=== PATIENT | female | born 1945 | race Caucasian/White ===

== ENCOUNTER 2020-01-14 09:33 | Inpatient (IN) ==
[2020-01-14] MEDS ORDERED: TUSSIONEX PENNKINETIC SUSP PO PRN (13:33)
[2020-01-14] MEDS ORDERED: LEVAQUIN PREMIX IV 750 MG 750 MG/150 ML BAG IV SCH (13:33)
[2020-01-14 14:03] VITALS: BMI 23.9
[2020-01-14 14:15] LABS: BASOPHILS % (AUTO) 0.2 % (0.2-1.0); EOSINOPHILS % (AUTO) 0.1 % (0.9-2.9); HEMATOCRIT 42.3 % (36.0-47.0); HEMOGLOBIN 14.3 g/dL (12.0-16.0); LYMPHOCYTES # (AUTO) 0.9 X10^3/uL (1.3-2.9); LYMPHOCYTES % (AUTO) 6.8 % (21.0-51.0); MEAN CORPUSCULAR HEMOGLOBIN 29.4 pg (27.0-34.0); MEAN CORPUSCULAR HGB CONC 33.7 g/dL (33.0-35.0); MEAN CORPUSCULAR VOLUME 87.1 fL (80.0-100.0); MEAN PLATELET VOLUME 8.4 fL (7.4-11.0); MONOCYTES % (AUTO) 7.5 % (0.0-13.0); NEUTROPHILS % (AUTO) 85.4 % (42.0-75.0); PLATELET COUNT 219 X10^3/uL (150.0-450.0); RED BLOOD COUNT 4.86 X10^6/uL (3.5-5.4); RED CELL DISTRIBUTION WIDTH 13.3 % (11.6-16.5); WHITE BLOOD COUNT 12.9 X10^3/uL (3.6-10.0)
[2020-01-14 14:37] LABS: ALANINE AMINOTRANSFERASE 42 Units/L (12-78); ALBUMIN 3.2 g/dL (3.4-5.0); ALKALINE PHOSPHATASE 79 Units/L (46-116); ASPARTATE AMINO TRANSFERASE 28 Units/L (15-37); BLOOD UREA NITROGEN 34 mg/dL (7-18); CALCIUM 9.6 mg/dL (8.5-10.1); CARBON DIOXIDE 24.7 mmol/L (21-32); CHLORIDE 100 mmol/L (98-107); COR CA(FOR HYPOALB) 10.2 mg/dL (8.5-10.1); CREATININE 1.66 mg/dL (0.55-1.02); LACTATE DEHYDROGENASE 239 Units/L (81-234); SODIUM 137 mmol/L (136-145); TOTAL PROTEIN 8.3 g/dL (6.4-8.2); eGFR NON BLACK RACES 32 (>60)
--- NOTE | 2020-01-14 14:46 | RAD ---
CHEST, 1 VIEWHISTORY: Cough and shortness of breath.Study: AP view of the chest.Comparison:NoneFindings:The cardiomediastinal silhouette is normal. No focal consolidations, pleural effusions or pneumothorax. There is some asymmetric opacity involving the left midlung. Bilateral hyperexpansion and interstitial prominence.IMPRESSION:1. Asymmetric left midlung opacity which may represent infection in the correct clinical setting.2. Findings of COPD.Electronically signed by: TAZ MEDEIROS (Jan 14, 2020 14:47:59)
[2020-01-14] MEDS ORDERED: KLOR-CON PO PRN (14:53)
[2020-01-14] MEDS ORDERED: POTASSIUM CHL 40 MEQ/NS 0.45% 500 ML IV PRN (14:53)
[2020-01-14] MEDS ORDERED: MAGNESIUM SULFATE 1 GRAM/100 mL PREMIX 1 GM/100 ML BAG IV PRN (14:53)
[2020-01-14] MEDS ORDERED: POTASSIUM CHLORIDE LIQ 20 MEQ UDC PO PRN (14:53)
[2020-01-14] MEDS ORDERED: MICRO K EXTEN CAP 10 MEQ PO PRN (14:53)
[2020-01-14] MEDS ORDERED: POTASSIUM CHL 60 MEQ/NS 0.45% 500 ML IV PRN (14:53)
[2020-01-14] MEDS ORDERED: K-RIDER 10 MEQ/NS 100 ML 10 MEQ/100 ML BAG IV PRN (14:53)
[2020-01-14] MEDS ORDERED: NS 1/2 1000 ML IV 1,000 ML IV ONE (14:57)
[2020-01-14] MEDS: NS 1/2 1000 ML IV 1,000 ML IV SCH (14:58)
[2020-01-14] MEDS: ROBITUSSIN DM PO SCH ×3 (14:58→20:55)
[2020-01-14] MEDS: FORTAZ or TAZICEF VIAL INJ 1 G in NS 100 ML IV + SPIKE MINIBAG* 100 ML IV SCH ×2 (14:58→14:59)
[2020-01-14] MEDS: VSL#3 PO SCH (15:03)
[2020-01-14] MEDS: K-DUR TAB 20 MEQ PO PRN (17:15)
[2020-01-14] MEDS ORDERED: ZOFRAN INJ 4 MG VIAL IVP PRN (17:32)
[2020-01-14] MEDS: TYLENOL 325 MG TAB PO PRN (18:20)
[2020-01-14] MEDS ORDERED: PULMICORT NEB TX 0.5 MG NEB SCH (21:00)
[2020-01-14] MEDS ORDERED: DUONEB 0.5 MG/3 MG (3 mL) NEB SCH (21:00)
[2020-01-14] MEDS ORDERED: VENTOLIN or PROAIR HFA IN SCH (21:00)
[2020-01-14 21:26] LABS: ABG BASE EXCESS -1.1 mmol/L (-2.0-2.0); ABG HCO3 20.7 mmol/L (22-26)
[2020-01-14 21:27] LABS: ABG ALLEN TEST POS
[2020-01-15] MEDS ORDERED: VENTOLIN or PROAIR HFA ONE (01:30)
[2020-01-15] MEDS ORDERED: NS 1/2 1000 ML IV 1,000 ML IV ONE ×3 (01:51→20:01)
[2020-01-15] MEDS: NS 1/2 1000 ML IV 1,000 ML IV SCH ×3 (01:56→20:40)
[2020-01-15 05:32] LABS: BASOPHILS % (AUTO) 0.1 % (0.2-1.0); EOSINOPHILS % (AUTO) 0.1 % (0.9-2.9); HEMATOCRIT 39.2 % (36.0-47.0); LYMPHOCYTES # (AUTO) 1.3 X10^3/uL (1.3-2.9); LYMPHOCYTES % (AUTO) 11.5 % (21.0-51.0); MEAN CORPUSCULAR HGB CONC 33.1 g/dL (33.0-35.0); MEAN CORPUSCULAR VOLUME 87.7 fL (80.0-100.0); MEAN PLATELET VOLUME 8.2 fL (7.4-11.0); MONOCYTES % (AUTO) 8.6 % (0.0-13.0); NEUTROPHILS # (AUTO) 9.2 x10^3/uL (2.2-4.8); NEUTROPHILS % (AUTO) 79.7 % (42.0-75.0); PLATELET COUNT 233 X10^3/uL (150.0-450.0); RED BLOOD COUNT 4.47 X10^6/uL (3.5-5.4); RED CELL DISTRIBUTION WIDTH 13.7 % (11.6-16.5); WHITE BLOOD COUNT 11.6 X10^3/uL (3.6-10.0)
[2020-01-15 05:35] LABS: ABG BASE EXCESS 0.9 mmol/L (-2.0-2.0); ABG HCO3 23.8 mmol/L (22-26)
[2020-01-15 05:36] LABS: ABG ALLEN TEST POS
[2020-01-15 05:57] LABS: ALBUMIN 2.7 g/dL (3.4-5.0); CALCIUM 8.9 mg/dL (8.5-10.1); CARBON DIOXIDE 27.2 mmol/L (21-32); COR CA(FOR HYPOALB) 9.9 mg/dL (8.5-10.1); CREATININE 1.32 mg/dL (0.55-1.02); TOTAL PROTEIN 7.3 g/dL (6.4-8.2)
[2020-01-15] MEDS: VENTOLIN or PROAIR HFA IN SCH ×3 (06:14→17:35)
[2020-01-15] MEDS: K-DUR TAB 20 MEQ PO PRN (06:39)
[2020-01-15] MEDS: LOVENOX INJ 30 MG SYR SC SCH (08:52)
[2020-01-15] MEDS: FORTAZ or TAZICEF VIAL INJ 1 G in NS 100 ML IV + SPIKE MINIBAG* 100 ML IV SCH (08:52)
[2020-01-15] MEDS: ROBITUSSIN DM PO SCH ×4 (08:52→20:40)
[2020-01-15] MEDS: VSL#3 PO SCH (08:53)
[2020-01-15] MEDS: TYLENOL 325 MG TAB PO PRN ×2 (09:05→20:50)
--- NOTE | 2020-01-15 09:57 | DR.H&P ---
H&P - History & Physical for Day of: H&P Date: 01/14/20 - Chief Complaint Chief Complaint: COUGH, NASAL CONGESTION, FEVER, CHILLS, NAUSEA/VOMITING, DECREASED APPETITE, AND FATIGUE - History of Present Illness History of Present Illness: IS A 74 YEAR OLD PATIENT OF [facility] IN [place], [place]. HE CONSULTED WITH US FOR DIRECT ADMISSION OF PATIENT. PATIENT PRESENTED WITH COMPLAINTS OF COUGH, NASAL CONGESTION, FEVER, CHILLS, NAUSEA/VOMITING, DECREASED APPETITE, AND FATIGUE. SYMPTOMS STARTED ABOUT A WEEK PRIOR AND HAVE PROGRESSIVELY GOTTEN WORSE. SHE WAS STARTED ON A MEDROL DOSEPACK, ALBUTEROL IHALER, AND AZITHROMYCIN ON 01/07/20. SYMPTOMS WERE NOT BETTER ON 01/11/20, SO SHE WAS THEN STARTED ON LEVAQUIN 500MG PO DAILY. SHE IS CURRENTLY TAKING THE LEVAQUIN. HER PMH INCLUDES: DIABETES MELLITUS TYPE 1, COPD, ARTHRITIS, HYSTERECTOMY, AND BLADDER TACK. ON ARRIVAL TO THE HOSPITAL, VITALS WERE 102.6-84-24-95%-129/59. LABS WERE OBTAINED. ABNORMAL LAB VALUES INCLUDE THE FOLLOWING: WBC 12.9, POTASSIUM 3.1, BUN 34, CREATININE 1.66, FERRITIN 668, LDH 239, CRP 143.20, TOTAL PROTEIN 8.3, ALBUMIN 3.2, GLOBULIN 5.1. COVID-19 POSITIVE. BLOOD AND SPUTUM CULTURES WERE SET UP. A CHEST XRAY WAS OBTAINED AND REVEALED: 1. Asymmetric left midlung opacity which may represent infection in the correct clinical setting.2. Findings of COPD. SHE WAS STARTED ON 1/2NS AT 75 ML/HR, LEVAQUIN 750MG IV Q48H, FORTAZ 1G IV DAILY, PROAIR INHALER Q6H, T USSIONEX 5ML PO Q12H PRN, LOVENOX 30MG SC DAILY, ROBITUSSIN DM 10 ML PO QID, ZOFRAN 4MG IV Q6H PRN, AND THE POTASSIUM AND MAGNESIUM PROTOCOLS. OTHERWISE, WE PLAN TO FOLLOW UP WITH AM LABS AND CHEST XRAY AND CONTINUE TO MONITOR. TIME SPENT WITH PATIENT ON EXAMINATION, REVIEWING LABS, AND PLAN OF CARE WAS BETWEEN 30-74 MINUTES. - Past Medical History Past Medical History: Arthritis, COPD, Diabetes - Past Surgical History Surgical History: Hysterectomy - Family History Family Medical History: Diabetes Mellitus, Cancer, PA - Social History Does patient currently use any type of tobacco product: No Have you used tobacco products in the last 12 months: No Type of Tobacco Use: None Alcohol Use: None Drug Use: None - Medications Home Medications: quinine [From Quinamm] Allergy (Verified 01/14/20 13:33) Sulfa (Sulfonamide Antibiotics) [SULFA] Allergy (Verified 01/14/20 13:33) - Review of Systems Constitutional: Fever, Chills, Weakness, Malaise, Other (DECREASED APPETITE ) Eyes: No Symptoms Reported ENT: No Symptoms Reported Respiratory: See HPI, Cough, Shortness of Breath, Wheezing Cardiovascular: No Symptoms Reported Gastrointestinal: No Symptoms Reported Genitourinary: No Symptoms Reported Musculoskeletal: No Symptoms Reported Skin: No Symptoms Reported Neurological: Weakness - Physical Exam Vital Signs: Temperature 98.5 F Pulse Rate [Apical] 75 Pulse Rate 98 Respiratory Rate 17 Blood Pressure [Left Arm] 126/60 O2 Sat by Pulse Oximetry 97 Oriented: Normal Eyes: Normal Ear: Normal Nose: Normal Throat: Normal Respiratory: Wheezes Throughout Cardiovascular: Normal. negative: S3, S4, Murmur : Normal Auscultation: Bowel Sounds: Normal Palpation: Normal Tenderness: Normal Skin: Normal Musculoskeletal: Normal Psychiatric: Normal Mood Description: Calm Affect: Normal Speech Pattern: Clear - Assessment/Plan (1) Bronchopneumonia Status: Acute Plan: ADMIT, 1/2NS AT 75 ML/HR, LEVAQUIN 750MG IV Q48H, FORTAZ 1G IV DAILY, PROAIR INHALER Q6H, TUSSIONEX 5ML PO Q12H PRN, LOVENOX 30MG SC DAILY, ROBITUSSIN DM 10 ML PO QID, ZOFRAN 4MG IV Q6H PRN, AND THE POTASSIUM AND MAGNESIUM PROTOCOLS (2) COVID-19 Status: Acute (3) Fever Qualifiers: Fever type: unspecified Qualified Code(s): R50.9 - Fever, unspecified Status: Acute (4) Dyspnea Qualifiers: Dyspnea type: shortness of breath Qualified Code(s): R06.02 - Shortness of breath; R06.00 - Dyspnea, unspecified; R06.01 - Orthopnea Status: Acute (5) Nausea and vomiting Qualifiers: Vomiting type: unspecified Vomiting Intractability: unspecified Qualified Code(s): R11.2 - Nausea with vomiting, unspecified Status: Acute - Allergies Allergies/Adverse Reactions: Allergies Allergy/AdvReac Type Severity Reaction Status Date / Time quinine [From Quinamm] Allergy Verified 01/14/20 13:33 Sulfa (Sulfonamide Allergy Verified 01/14/20 13:33 Antibiotics) [SULFA]
[2020-01-15] MEDS: TUSSIONEX PENNKINETIC SUSP PO SCH ×2 (11:18→23:10)
[2020-01-15] MEDS: TESSALON PERLES PO SCH ×2 (14:29→21:57)
[2020-01-16] MEDS: VENTOLIN or PROAIR HFA IN SCH ×4 (01:19→17:25)
[2020-01-16 05:23] LABS: BASOPHILS % (AUTO) 0.2 % (0.2-1.0); EOSINOPHILS % (AUTO) 0.3 % (0.9-2.9); HEMATOCRIT 32.9 % (36.0-47.0); HEMOGLOBIN 10.9 g/dL (12.0-16.0); LYMPHOCYTES # (AUTO) 1.6 X10^3/uL (1.3-2.9); LYMPHOCYTES % (AUTO) 13.3 % (21.0-51.0); MEAN CORPUSCULAR HEMOGLOBIN 29.5 pg (27.0-34.0); MEAN CORPUSCULAR HGB CONC 33.2 g/dL (33.0-35.0); MEAN CORPUSCULAR VOLUME 88.8 fL (80.0-100.0); MONOCYTES # (AUTO) 1.1 x10^3/uL (0.3-0.8); MONOCYTES % (AUTO) 9.1 % (0.0-13.0); NEUTROPHILS # (AUTO) 9.3 x10^3/uL (2.2-4.8); NEUTROPHILS % (AUTO) 77.1 % (42.0-75.0); PLATELET COUNT 199 X10^3/uL (150.0-450.0); RED CELL DISTRIBUTION WIDTH 13.7 % (11.6-16.5); WHITE BLOOD COUNT 12.1 X10^3/uL (3.6-10.0)
[2020-01-16 05:27] LABS: CALCIUM 8.2 mg/dL (8.5-10.1); CARBON DIOXIDE 24.4 mmol/L (21-32); COR CA(FOR HYPOALB) 9.8 mg/dL (8.5-10.1); CREATININE 1.19 mg/dL (0.55-1.02); TOTAL PROTEIN 5.9 g/dL (6.4-8.2)
[2020-01-16 05:38] LABS: ABG BASE EXCESS 1.4 mmol/L (-2.0-2.0); ABG HCO3 24.7 mmol/L (22-26)
[2020-01-16 05:40] LABS: ABG ALLEN TEST POSS
[2020-01-16] MEDS: TESSALON PERLES PO SCH ×3 (05:51→21:01)
--- NOTE | 2020-01-16 06:21 | RAD ---
HISTORYShortness of breathSTUDYChest AP [id number]/22/2020FINDINGSThe heart is mildly enlarged. No congestive heart failure is noted. The aorta is calcified. There has been interval development since the prior examination of some subsegmental atelectasis abutting the minor fissure in the right midlung. Left perihilar subsegmental atelectasis and infiltrate are now more prominent than on the prior examination. No pleural effusions are identified. The bony thorax is unremarkable.IMPRESSIONMild cardiomegaly without congestive heart failureMore prominent left perihilar infiltrate and subsegmental atelectasisRight midline subsegmental atelectasisElectronically signed by: FERNANDO JAMES (Jan 16, 2020 06:19:51)
[2020-01-16] MEDS: FORTAZ or TAZICEF VIAL INJ 1 G in NS 100 ML IV + SPIKE MINIBAG* 100 ML IV SCH (09:46)
[2020-01-16] MEDS: LEVAQUIN PREMIX IV 750 MG 750 MG/150 ML BAG IV SCH (09:46)
[2020-01-16] MEDS: VSL#3 PO SCH (09:47)
[2020-01-16] MEDS: LOVENOX INJ 30 MG SYR SC SCH (09:47)
[2020-01-16] MEDS: ROBITUSSIN DM PO SCH ×4 (09:47→20:57)
--- NOTE | 2020-01-16 10:22 | PCM.PROG ---
Progress Note - Progress Note for Day of Date of Exam: 01/15/20 - Subjective Subjective: IS BEING TREATED FOR COVID-19 AND BRONCHOPNEUMONIA. TODAY, SHE IS ALERT AND OREINTED, LYING IN BED ON MORNING ROUNDS. SHE CONTINUES WITH COMPLAINTS OF COUGH AND SHORTNESS OF BREATH TODAY. ON EXAMINATION, HEART IS REGUALR IN RATE AND RHYTHM. BILATERAL LUNGS ARE NOTED WITH SCATTERED WHEEZING THROUGHOUT. ABDOMEN IS ROUND, SOFT, AND NON-TENDER WITH NORMAL BOWEL SOUNDS NOTED IN ALL QUADRANTS. HER VITALS THIS MORNING ARE: 101.2-78-11-91%RA-101/55. LABS WERE OBTAINED. ABNORMAL LAB VALUES INCLUDE THE FOLLOWING: WBC 12.1, HGB 10.9, HCT 32.9, POTASSIUM 3.3, BUN 19, CREATININE 1.32, GLUCOSE 159, FERRITIN 762, CRP 119.10, ALBUMIN 2.7, GLOBULIN 4.6. ABG REVEALED: PH 7.480, PC02 32.0, P02 62.0, HC03 23.8, 02 SATS 93.0. BLOOD AND SPUTUM CULTURES ARE PENDING. SHE IS CURRENTLY RECEIVING 1/2NS AT 75 ML/HR, LEVAQUIN 750MG IV Q48H, FORTAZ 1G IV DAILY, PROAIR INHALER Q6H, TUSSIONEX 5ML PO Q12H PRN, LOVENOX 30MG SC DAILY, ROBITUSSIN DM 10 ML PO QID, ZOFRAN 4MG IV Q6H PRN, AND THE POTASSIUM AND MAGNESIUM PROTOCOLS. WE WILL CONTINUE WITH CURRENT PLAN OF CARE TODAY AND ADD TESSALON PERLES TID. OTHERWISE, WE WILL FOLLOW UP WITH AM LABS AND CONTINUE TO MONITOR. - Past Medical Family Social History Past Med/Fam/Surg Hx: No changes since H&P Allergies: Allergies quinine [From Quinamm] Allergy (Verified 01/14/20 13:33) Sulfa (Sulfonamide Antibiotics) [SULFA] Allergy (Verified 01/14/20 13:33) - Review of Systems ROS: No change since H&P - Vital Signs and I&O's Vital Signs: Temperature 98.8 F Pulse Rate [Apical] 63 Pulse Rate 70 Respiratory Rate 20 Blood Pressure [Left Arm] 125/54 O2 Sat by Pulse Oximetry 98 Intake and Output: Intake & Output 01/13/20 01/14/20 01/15/20 01/16/20 11:59 11:59 11:59 11:59 Intake Total 3080 / 3080 3840 / 3840 Output Total 600 / 600 Balance 3080 / 3080 3240 / 3240 - Physical Exam Oriented: Normal Eyes: Normal Ear: Normal Nose: Normal Throat: Normal Respiratory: Generalized, Wheezes Cardiovascular: Normal. negative: S3, S4, Murmur : Normal Auscultation: Bowel Sounds: Normal Palpation: Normal Tenderness: Normal Skin: Normal Musculoskeletal: Normal Psychiatric: Normal Mood Description: Calm Affect: Normal Speech Pattern: Clear, Appropriate - Laboratory and Diagnostics Result Diagrams: 01/16/20 04:15 01/16/20 04:15 Labs: 01/14/20 17:55 Sputum - Expectorated Sputum Sputum Culture - Final 01/14/20 17:55 Sputum - Expectorated Sputum - Final Laboratory WBC 12.1 X10^3/uL (3.6-10.0) H 01/16/20 04:15 RBC 3.70 X10^6/uL (3.5-5.4) 01/16/20 04:15 Hgb 10.9 g/dL (12.0-16.0) L D 01/16/20 04:15 Hct 32.9 % (36.0-47.0) L 01/16/20 04:15 MCV 88.8 fL (80.0-100.0) 01/16/20 04:15 MCH 29.5 pg (27.0-34.0) 01/16/20 04:15 MCHC 33.2 g/dL (33.0-35.0) 01/16/20 04:15 RDW 13.7 % (11.6-16.5) 01/16/20 04:15 Plt Count 199 X10^3/uL (150.0-450.0) 01/16/20 04:15 MPV 9.0 fL (7.4-11.0) 01/16/20 04:15 Neut % (Auto) 77.1 % (42.0-75.0) H 01/16/20 04:15 Lymph % (Auto) 13.3 % (21.0-51.0) L 01/16/20 04:15 [place] % (Auto) 9.1 % (0.0-13.0) 01/16/20 04:15 Eos % (Auto) 0.3 % (0.9-2.9) L 01/16/20 04:15 Baso % (Auto) 0.2 % (0.2-1.0) 01/16/20 04:15 Neut # (Auto) 9.3 x10^3/uL (2.2-4.8) H 01/16/20 04:15 Lymph # (Auto) 1.6 X10^3/uL (1.3-2.9) 01/16/20 04:15 [place] # (Auto) 1.1 x10^3/uL (0.3-0.8) H 01/16/20 04:15 Eos # (Auto) 0.0 x10^3/uL (0.0-0.2) 01/16/20 04:15 Baso # (Auto) 0.0 X10^3/uL (0.0-0.1) 01/16/20 04:15 Absolute Nucleated RBC 0.1 /100WBC 01/16/20 04:15 Sample Site R rad 01/16/20 05:00 ABG pH 7.470 (7.35-7.45) H 01/16/20 05:00 ABG pCO2 34.0 mmHg (35.0-45.0) L 01/16/20 05:00 ABG pO2 83.0 mmHg (80.0-100.0) 01/16/20 05:00 ABG HCO3 24.7 mmol/L (22-26) 01/16/20 05:00 ABG O2 Saturation 97.0 % (90-100) 01/16/20 05:00 ABG Base Excess 1.4 mmol/L (-2.0-2.0) 01/16/20 05:00 Jose Test Poss 01/16/20 05:00 A-a Gradient 74.0 mmHg 01/16/20 05:00 FiO2 28.0 01/16/20 05:00 Blood Gas Comments Amber well kb 01/16/20 05:00 Sodium 134 mmol/L (136-145) L 01/16/20 04:15 Corrected Sodium 136 mmol/L (136-145) 01/16/20 04:15 Potassium 3.9 mmol/L (3.5-5.1) 01/16/20 04:15 Chloride 101 mmol/L (98-107) 01/16/20 04:15 Carbon Dioxide 24.4 mmol/L (21-32) 01/16/20 04:15 BUN 10 mg/dL (7-18) 01/16/20 04:15 Creatinine 1.19 mg/dL (0.55-1.02) H 01/16/20 04:15 Est GFR (MDRD) Af Amer 57 (>60) L 01/16/20 04:15 Est GFR (MDRD) Non-Af 47 (>60) L 01/16/20 04:15 Glucose 170 mg/dL (65-99) H 01/16/20 04:15 Calcium 8.2 mg/dL (8.5-10.1) L 01/16/20 04:15 Corrected Calcium 9.8 mg/dL (8.5-10.1) 01/16/20 04:15 Magnesium 2.0 mg/dL (1.7-2.9) 01/14/20 13:55 Ferritin 832 ng/mL (8-252) H 01/16/20 04:15 Total Bilirubin 0.30 mg/dL (0.2-1.0) 01/16/20 04:15 AST 26 Units/L (15-37) 01/16/20 04:15 ALT 36 Units/L (12-78) 01/16/20 04:15 Alkaline Phosphatase 65 Units/L (46-116) 01/16/20 04:15 Lactate Dehydrogenase 239 Units/L (81-234) H 01/14/20 13:55 C-Reactive Protein 105.20 mg/L (0-3.0) H 01/16/20 04:15 Total Protein 5.9 g/dL (6.4-8.2) L 01/16/20 04:15 Albumin 2.0 g/dL (3.4-5.0) L 01/16/20 04:15 Globulin 3.9 g/dL (2.5-4.5) 01/16/20 04:15 Albumin/Globulin Ratio 0.5 Ratio (1.1-2.1) L 01/16/20 04:15 SARS-CoV-2 (PCR) Positive (NEGATIVE) A 01/14/20 10:42 - Plan (1) Bronchopneumonia Status: Acute Plan: 1/2NS AT 75 ML/HR, LEVAQUIN 750MG IV Q48H, FORTAZ 1G IV DAILY, PROAIR INHALER Q6H, TUSSIONEX 5ML PO Q12H, TESSALON PERLES TID, LOVENOX 30MG SC DAILY, ROBITUSSIN DM 10 ML PO QID, ZOFRAN 4MG IV Q6H PRN, AND THE POTASSIUM AND MAGNESIUM PROTOCOLS (2) COVID-19 Status: Acute (3) Fever Status: Acute Qualifiers: Fever type: unspecified Qualified Code(s): R50.9 - Fever, unspecified (4) Dyspnea Status: Acute Qualifiers: Dyspnea type: shortness of breath Qualified Code(s): R06.02 - Shortness of breath; R06.00 - Dyspnea, unspecified; R06.01 - Orthopnea (5) Nausea and vomiting Status: Acute Qualifiers: Vomiting type: unspecified Vomiting Intractability: unspecified Qualified Code(s): R11.2 - Nausea with vomiting, unspecified
[2020-01-16] MEDS ORDERED: NS 1/2 1000 ML IV 1,000 ML IV ONE ×2 (11:05→19:56)
[2020-01-16] MEDS: NS 1/2 1000 ML IV 1,000 ML IV SCH ×2 (11:46→20:59)
[2020-01-16] MEDS: TUSSIONEX PENNKINETIC SUSP PO SCH ×2 (11:46→23:35)
--- NOTE | 2020-01-16 22:17 | PCM.PROG ---
Progress Note - Progress Note for Day of Date of Exam: 01/16/20 - Subjective Subjective: IS BEING TREATED FOR COVID-19 AND BRONCHOPNEUMONIA. TODAY, SHE IS ALERT AND OREINTED, LYING IN BED ON MORNING ROUNDS. SHE CONTINUES WITH COMPLAINTS OF COUGH AND SHORTNESS OF BREATH TODAY. ON EXAMINATION, HEART IS REGUALR IN RATE AND RHYTHM. BILATERAL LUNGS ARE NOTED WITH SCATTERED WHEEZING THROUGHOUT. ABDOMEN IS ROUND, SOFT, AND NON-TENDER WITH NORMAL BOWEL SOUNDS NOTED IN ALL QUADRANTS. HER VITALS THIS MORNING ARE: 98.4-73-22-96%-133/63. LABS WERE OBTAINED. ABNORMAL LAB VALUES INCLUDE THE FOLLOWING: wbc 12.1, hgb 10.9, hct 32.9, sodium 134, creatinine 1.19, glucose 170, ferritin 832, crp 105.20, total protein 5.9, alblumin 2.0. ABG REVEALED: PH 7.470, pc02 34.0, p02 83.0, hc03 24.7, 02 saturation 97.0, base excess 1.4. BLOOD AND SPUTUM CULTURES ARE PENDING. A CHEST XRAY WAS OBTAINED AND REVEALED: Mild cardiomegaly without congestive heart failure. More prominent left perihilar infiltrate and subsegmental atelectasis. Right midline subsegmental atelectasis. SHE IS CU RRENTLY RECEIVING 1/2NS AT 75 ML/HR, LEVAQUIN 750MG IV Q48H, FORTAZ 1G IV DAILY, PROAIR INHALER Q6H, TUSSIONEX 5ML PO Q12H PRN, LOVENOX 30MG SC DAILY, ROBITUSSIN DM 10 ML PO QID, ZOFRAN 4MG IV Q6H PRN, AND THE POTASSIUM AND MAGNESIUM PROTOCOLS. WE WILL CONTINUE WITH CURRENT PLAN OF CARE TODAY. OTHERWISE, WE WILL FOLLOW UP WITH AM LABS AND CONTINUE TO MONITOR. - Past Medical Family Social History Past Med/Fam/Surg Hx: No changes since H&P Allergies: Allergies quinine [From Quinamm] Allergy (Verified 01/14/20 13:33) Sulfa (Sulfonamide Antibiotics) [SULFA] Allergy (Verified 01/14/20 13:33) - Review of Systems ROS: No change since H&P - Vital Signs and I&O's Vital Signs: Temperature 98.0 F Pulse Rate [Apical] 65 Pulse Rate 65 Respiratory Rate 18 Blood Pressure [Left Arm] 119/58 O2 Sat by Pulse Oximetry 98 Intake and Output: Intake & Output 01/14/20 01/15/20 01/16/20 01/17/20 11:59 11:59 11:59 11:59 Intake Total 3080 / 3080 3840 / 3840 1560 / 1560 Output Total 600 / 600 Balance 3080 / 3080 3240 / 3240 1560 / 1560 - Physical Exam Oriented: Normal Eyes: Normal Ear: Normal Nose: Normal Throat: Normal Respiratory: Generalized, Wheezes Cardiovascular: Normal. negative: S3, S4, Murmur : Normal Auscultation: Bowel Sounds: Normal Palpation: Normal Tenderness: Normal Skin: Normal Musculoskeletal: Normal Psychiatric: Normal Mood Description: Calm Affect: Normal Speech Pattern: Clear, Appropriate - Laboratory and Diagnostics Result Diagrams: 01/16/20 04:15 01/16/20 04:15 Labs: 01/14/20 13:55 Blood Blood Culture - Preliminary 01/14/20 13:55 Blood Blood Culture - Preliminary 01/14/20 17:55 Sputum - Expectorated Sputum Sputum Culture - Final 01/14/20 17:55 Sputum - Expectorated Sputum - Final Laboratory WBC 12.1 X10^3/uL (3.6-10.0) H 01/16/20 04:15 RBC 3.70 X10^6/uL (3.5-5.4) 01/16/20 04:15 Hgb 10.9 g/dL (12.0-16.0) L D 01/16/20 04:15 Hct 32.9 % (36.0-47.0) L 01/16/20 04:15 MCV 88.8 fL (80.0-100.0) 01/16/20 04:15 MCH 29.5 pg (27.0-34.0) 01/16/20 04:15 MCHC 33.2 g/dL (33.0-35.0) 01/16/20 04:15 RDW 13.7 % (11.6-16.5) 01/16/20 04:15 Plt Count 199 X10^3/uL (150.0-450.0) 01/16/20 04:15 MPV 9.0 fL (7.4-11.0) 01/16/20 04:15 Neut % (Auto) 77.1 % (42.0-75.0) H 01/16/20 04:15 Lymph % (Auto) 13.3 % (21.0-51.0) L 01/16/20 04:15 [place] % (Auto) 9.1 % (0.0-13.0) 01/16/20 04:15 Eos % (Auto) 0.3 % (0.9-2.9) L 01/16/20 04:15 Baso % (Auto) 0.2 % (0.2-1.0) 01/16/20 04:15 Neut # (Auto) 9.3 x10^3/uL (2.2-4.8) H 01/16/20 04:15 Lymph # (Auto) 1.6 X10^3/uL (1.3-2.9) 01/16/20 04:15 [place] # (Auto) 1.1 x10^3/uL (0.3-0.8) H 01/16/20 04:15 Eos # (Auto) 0.0 x10^3/uL (0.0-0.2) 01/16/20 04:15 Baso # (Auto) 0.0 X10^3/uL (0.0-0.1) 01/16/20 04:15 Absolute Nucleated RBC 0.1 /100WBC 01/16/20 04:15 Sample Site R rad 01/16/20 05:00 ABG pH 7.470 (7.35-7.45) H 01/16/20 05:00 ABG pCO2 34.0 mmHg (35.0-45.0) L 01/16/20 05:00 ABG pO2 83.0 mmHg (80.0-100.0) 01/16/20 05:00 ABG HCO3 24.7 mmol/L (22-26) 01/16/20 05:00 ABG O2 Saturation 97.0 % (90-100) 01/16/20 05:00 ABG Base Excess 1.4 mmol/L (-2.0-2.0) 01/16/20 05:00 Jose Test Poss 01/16/20 05:00 A-a Gradient 74.0 mmHg 01/16/20 05:00 FiO2 28.0 01/16/20 05:00 Blood Gas Comments Amber well kb 01/16/20 05:00 Sodium 134 mmol/L (136-145) L 01/16/20 04:15 Corrected Sodium 136 mmol/L (136-145) 01/16/20 04:15 Potassium 3.9 mmol/L (3.5-5.1) 01/16/20 04:15 Chloride 101 mmol/L (98-107) 01/16/20 04:15 Carbon Dioxide 24.4 mmol/L (21-32) 01/16/20 04:15 BUN 10 mg/dL (7-18) 01/16/20 04:15 Creatinine 1.19 mg/dL (0.55-1.02) H 01/16/20 04:15 Est GFR (MDRD) Af Amer 57 (>60) L 01/16/20 04:15 Est GFR (MDRD) Non-Af 47 (>60) L 01/16/20 04:15 Glucose 170 mg/dL (65-99) H 01/16/20 04:15 Calcium 8.2 mg/dL (8.5-10.1) L 01/16/20 04:15 Corrected Calcium 9.8 mg/dL (8.5-10.1) 01/16/20 04:15 Magnesium 2.0 mg/dL (1.7-2.9) 01/14/20 13:55 Ferritin 832 ng/mL (8-252) H 01/16/20 04:15 Total Bilirubin 0.30 mg/dL (0.2-1.0) 01/16/20 04:15 AST 26 Units/L (15-37) 01/16/20 04:15 ALT 36 Units/L (12-78) 01/16/20 04:15 Alkaline Phosphatase 65 Units/L (46-116) 01/16/20 04:15 Lactate Dehydrogenase 239 Units/L (81-234) H 01/14/20 13:55 C-Reactive Protein 105.20 mg/L (0-3.0) H 01/16/20 04:15 Total Protein 5.9 g/dL (6.4-8.2) L 01/16/20 04:15 Albumin 2.0 g/dL (3.4-5.0) L 01/16/20 04:15 Globulin 3.9 g/dL (2.5-4.5) 01/16/20 04:15 Albumin/Globulin Ratio 0.5 Ratio (1.1-2.1) L 01/16/20 04:15 SARS-CoV-2 (PCR) Positive (NEGATIVE) A 01/14/20 10:42 - Plan (1) Bronchopneumonia Status: Acute Plan: 1/2NS AT 75 ML/HR, LEVAQUIN 750MG IV Q48H, FORTAZ 1G IV DAILY, PROAIR INHALER Q6H, TUSSIONEX 5ML PO Q12H, TESSALON PERLES TID, LOVENOX 30MG SC DAILY, ROBITUSSIN DM 10 ML PO QID, ZOFRAN 4MG IV Q6H PRN, AND THE POTASSIUM AND MAGNESIUM PROTOCOLS (2) COVID-19 Status: Acute (3) Fever Status: Acute Qualifiers: Fever type: unspecified Qualified Code(s): R50.9 - Fever, unspecified (4) Dyspnea Status: Acute Qualifiers: Dyspnea type: shortness of breath Qualified Code(s): R06.02 - Shortness of breath; R06.00 - Dyspnea, unspecified; R06.01 - Orthopnea (5) Nausea and vomiting Status: Acute Qualifiers: Vomiting type: unspecified Vomiting Intractability: unspecified Qualified Code(s): R11.2 - Nausea with vomiting, unspecified
[2020-01-17] MEDS: VENTOLIN or PROAIR HFA IN SCH ×4 (00:55→16:20)
[2020-01-17 05:17] LABS: BASOPHILS % (AUTO) 0.1 % (0.2-1.0); EOSINOPHILS # (AUTO) 0.2 x10^3/uL (0.0-0.2); EOSINOPHILS % (AUTO) 1.4 % (0.9-2.9); HEMATOCRIT 30.3 % (36.0-47.0); HEMOGLOBIN 10.3 g/dL (12.0-16.0); LYMPHOCYTES # (AUTO) 1.6 X10^3/uL (1.3-2.9); LYMPHOCYTES % (AUTO) 12.8 % (21.0-51.0); MEAN CORPUSCULAR HEMOGLOBIN 29.7 pg (27.0-34.0); MEAN CORPUSCULAR HGB CONC 34.1 g/dL (33.0-35.0); MEAN CORPUSCULAR VOLUME 87.1 fL (80.0-100.0); MEAN PLATELET VOLUME 8.3 fL (7.4-11.0); MONOCYTES # (AUTO) 1.3 x10^3/uL (0.3-0.8); MONOCYTES % (AUTO) 10.4 % (0.0-13.0); NEUTROPHILS # (AUTO) 9.2 x10^3/uL (2.2-4.8); NEUTROPHILS % (AUTO) 75.3 % (42.0-75.0); PLATELET COUNT 201 X10^3/uL (150.0-450.0); RED BLOOD COUNT 3.48 X10^6/uL (3.5-5.4); RED CELL DISTRIBUTION WIDTH 13.5 % (11.6-16.5); WHITE BLOOD COUNT 12.2 X10^3/uL (3.6-10.0)
[2020-01-17 05:33] LABS: ALANINE AMINOTRANSFERASE 50 Units/L (12-78); ALBUMIN 1.9 g/dL (3.4-5.0); ALKALINE PHOSPHATASE 62 Units/L (46-116); ASPARTATE AMINO TRANSFERASE 36 Units/L (15-37); BLOOD UREA NITROGEN 8 mg/dL (7-18); CALCIUM 8.5 mg/dL (8.5-10.1); CARBON DIOXIDE 28.2 mmol/L (21-32); CHLORIDE 98 mmol/L (98-107); COR CA(FOR HYPOALB) 10.2 mg/dL (8.5-10.1); COR NA(FOR HYPERGLY) 133 mmol/L (136-145); CREATININE 0.87 mg/dL (0.55-1.02); SODIUM 132 mmol/L (136-145); TOTAL PROTEIN 5.8 g/dL (6.4-8.2); eGFR NON BLACK RACES > 60 (>60)
[2020-01-17] MEDS: TESSALON PERLES PO SCH ×3 (05:55→21:19)
--- NOTE | 2020-01-17 08:06 | RAD ---
HISTORYShortness of breathSTUDYChest AP [id number]/24/2020FINDINGSThe heart is upper limits normal in size. No definite congestive heart failure is noted. The lungs are less well inflated than on the prior examination. Increasing perihilar atelectasis right upper and right lower lobe when compared with the prior examination. Left perihilar infiltrate is unchanged. A small left pleural effusion may be present. Bony thorax is unremarkable.IMPRESSIONHypo inflationWorsening perihilar subsegmental atelectasis on the rightNo change left perihilar infiltrateElectronically signed by: FERNANDO JAMES (Jan 17, 2020 08:05:01)
[2020-01-17] MEDS: LOVENOX INJ 30 MG SYR SC SCH (09:33)
[2020-01-17] MEDS: ROBITUSSIN DM PO SCH ×4 (09:33→20:44)
[2020-01-17] MEDS: VSL#3 PO SCH (09:34)
[2020-01-17] MEDS: FORTAZ or TAZICEF VIAL INJ 1 G in NS 100 ML IV + SPIKE MINIBAG* 100 ML IV SCH (09:46)
[2020-01-17] MEDS: NS 1/2 1000 ML IV 1,000 ML IV SCH ×2 (12:57→13:38)
[2020-01-17] MEDS: TUSSIONEX PENNKINETIC SUSP PO SCH ×2 (12:57→23:31)
[2020-01-17] MEDS ORDERED: NS 1/2 1000 ML IV 1,000 ML IV ONE (13:23)
--- NOTE | 2020-01-17 22:21 | PCM.PROG ---
Progress Note - Progress Note for Day of Date of Exam: 01/17/20 - Subjective Subjective: IS BEING TREATED FOR COVID-19 AND BRONCHOPNEUMONIA. TODAY, SHE IS ALERT AND OREINTED, LYING IN BED ON MORNING ROUNDS. SHE CONTINUES WITH COMPLAINTS OF COUGH AND SHORTNESS OF BREATH, BUT REPORTS SLIGTH IMPROVEMENT IN SYMPTOMS TODAY. ON EXAMINATION, HEART IS REGUALR IN RATE AND RHYTHM. BILATERAL LUNGS ARE NOTED WITH SCATTERED WHEEZING THROUGHOUT. ABDOMEN IS ROUND, SOFT, AND NON-TENDER WITH NORMAL BOWEL SOUNDS NOTED IN ALL QUADRANTS. HER VITALS THIS MORNING ARE: 98.9-70-26-97%-110/54. LABS WERE OBTAINED. ABNORMAL LAB VALUES INCLUDE THE FOLLOWING: WBC 12.2, RBC 3.48, HGB 10.3, HCT 30.3, SODIUM 132, GLUCOSE 122, FERRITIN 775, CRP 77.60, TOTAL PROTEIN 5.8. ALBUMIN 1.9. BLOOD AND SPUTUM CULTURES ARE PENDING. A CHEST XRAY WAS OBTAINED AND REVEALED: Hypo inflation. Worsening perihilar subsegmental atelectasis on the right. No change left perihilar infiltrate. SHE IS CURRENTLY RECEIVING 1/2NS AT 75 ML/HR, LEVAQUIN 750MG IV Q48H, FORTAZ 1G IV DAILY, PROAIR INHALER Q6H, TUSSIONEX 5ML PO Q12H PRN, LOVENOX 30MG SC DAILY, ROBITUSSIN DM 10 ML PO QID, ZOFRAN 4MG IV Q6H PRN, AND THE POTASSIUM AND MAGNESIUM PROTOCOLS. WE WILL CONTINUE WITH CURRENT PLAN OF CARE TODAY. OTHERWISE, WE WILL FOLLOW UP WITH AM LABS AND CONTINUE TO MONITOR. - Past Medical Family Social History Past Med/Fam/Surg Hx: No changes since H&P Allergies: Allergies quinine [From Quinamm] Allergy (Verified 01/14/20 13:33) Sulfa (Sulfonamide Antibiotics) [SULFA] Allergy (Verified 01/14/20 13:33) - Review of Systems ROS: No change since H&P - Vital Signs and I&O's Vital Signs: Temperature 98.6 F Pulse Rate [Apical] 73 Pulse Rate 68 Respiratory Rate 21 Blood Pressure [Left Arm] 127/58 O2 Sat by Pulse Oximetry 95 Intake and Output: Intake & Output 01/15/20 01/16/20 01/17/20 01/18/20 11:59 11:59 11:59 11:59 Intake Total 3080 / 3080 3840 / 3840 2885 / 2885 1196 / 1196 Output Total 600 / 600 Balance 3080 / 3080 3240 / 3240 2885 / 2885 1196 / 1196 - Physical Exam Oriented: Normal Eyes: Normal Ear: Normal Nose: Normal Throat: Normal Respiratory: Generalized, Wheezes Cardiovascular: Normal. negative: S3, S4, Murmur : Normal Auscultation: Bowel Sounds: Normal Tenderness: Normal Skin: Normal Musculoskeletal: Normal Psychiatric: Normal Mood Description: Calm Affect: Normal Speech Pattern: Clear - Laboratory and Diagnostics Result Diagrams: 01/17/20 04:22 01/17/20 04:22 Labs: 01/14/20 13:55 Blood Blood Culture - Preliminary 01/14/20 13:55 Blood Blood Culture - Preliminary 01/14/20 17:55 Sputum - Expectorated Sputum Sputum Culture - Final 01/14/20 17:55 Sputum - Expectorated Sputum - Final Laboratory WBC 12.2 X10^3/uL (3.6-10.0) H 01/17/20 04:22 RBC 3.48 X10^6/uL (3.5-5.4) L 01/17/20 04:22 Hgb 10.3 g/dL (12.0-16.0) L 01/17/20 04:22 Hct 30.3 % (36.0-47.0) L 01/17/20 04:22 MCV 87.1 fL (80.0-100.0) 01/17/20 04:22 MCH 29.7 pg (27.0-34.0) 01/17/20 04:22 MCHC 34.1 g/dL (33.0-35.0) 01/17/20 04:22 RDW 13.5 % (11.6-16.5) 01/17/20 04:22 Plt Count 201 X10^3/uL (150.0-450.0) 01/17/20 04:22 MPV 8.3 fL (7.4-11.0) 01/17/20 04:22 Neut % (Auto) 75.3 % (42.0-75.0) H 01/17/20 04:22 Lymph % (Auto) 12.8 % (21.0-51.0) L 01/17/20 04:22 Tucker % (Auto) 10.4 % (0.0-13.0) 01/17/20 04:22 Eos % (Auto) 1.4 % (0.9-2.9) 01/17/20 04:22 Baso % (Auto) 0.1 % (0.2-1.0) L 01/17/20 04:22 Neut # (Auto) 9.2 x10^3/uL (2.2-4.8) H 01/17/20 04:22 Lymph # (Auto) 1.6 X10^3/uL (1.3-2.9) 01/17/20 04:22 Tucker # (Auto) 1.3 x10^3/uL (0.3-0.8) H 01/17/20 04:22 Eos # (Auto) 0.2 x10^3/uL (0.0-0.2) 01/17/20 04:22 Baso # (Auto) 0.0 X10^3/uL (0.0-0.1) 01/17/20 04:22 Absolute Nucleated RBC 0.0 /100WBC 01/17/20 04:22 Sample Site R rad 01/16/20 05:00 ABG pH 7.470 (7.35-7.45) H 01/16/20 05:00 ABG pCO2 34.0 mmHg (35.0-45.0) L 01/16/20 05:00 ABG pO2 83.0 mmHg (80.0-100.0) 01/16/20 05:00 ABG HCO3 24.7 mmol/L (22-26) 01/16/20 05:00 ABG O2 Saturation 97.0 % (90-100) 01/16/20 05:00 ABG Base Excess 1.4 mmol/L (-2.0-2.0) 01/16/20 05:00 Jose Test Poss 01/16/20 05:00 A-a Gradient 74.0 mmHg 01/16/20 05:00 FiO2 28.0 01/16/20 05:00 Blood Gas Comments Amber well kb 01/16/20 05:00 Sodium 132 mmol/L (136-145) L 01/17/20 04:22 Corrected Sodium 133 mmol/L (136-145) L 01/17/20 04:22 Potassium 4.0 mmol/L (3.5-5.1) 01/17/20 04:22 Chloride 98 mmol/L (98-107) 01/17/20 04:22 Carbon Dioxide 28.2 mmol/L (21-32) 01/17/20 04:22 BUN 8 mg/dL (7-18) 01/17/20 04:22 Creatinine 0.87 mg/dL (0.55-1.02) 01/17/20 04:22 Est GFR (MDRD) Af Amer > 60 (>60) 01/17/20 04:22 Est GFR (MDRD) Non-Af > 60 (>60) 01/17/20 04:22 Glucose 122 mg/dL (65-99) H 01/17/20 04:22 Calcium 8.5 mg/dL (8.5-10.1) 01/17/20 04:22 Corrected Calcium 10.2 mg/dL (8.5-10.1) H 01/17/20 04:22 Magnesium 2.0 mg/dL (1.7-2.9) 01/14/20 13:55 Ferritin 775 ng/mL (8-252) H 01/17/20 04:22 Total Bilirubin 0.30 mg/dL (0.2-1.0) 01/17/20 04:22 AST 36 Units/L (15-37) 01/17/20 04:22 ALT 50 Units/L (12-78) 01/17/20 04:22 Alkaline Phosphatase 62 Units/L (46-116) 01/17/20 04:22 Lactate Dehydrogenase 239 Units/L (81-234) H 01/14/20 13:55 C-Reactive Protein 77.60 mg/L (0-3.0) H 01/17/20 04:22 Total Protein 5.8 g/dL (6.4-8.2) L 01/17/20 04:22 Albumin 1.9 g/dL (3.4-5.0) L 01/17/20 04:22 Globulin 3.9 g/dL (2.5-4.5) 01/17/20 04:22 Albumin/Globulin Ratio 0.5 Ratio (1.1-2.1) L 01/17/20 04:22 SARS-CoV-2 (PCR) Positive (NEGATIVE) A 01/14/20 10:42 - Plan (1) Bronchopneumonia Status: Acute Plan: 1/2NS AT 75 ML/HR, LEVAQUIN 750MG IV Q48H, FORTAZ 1G IV DAILY, PROAIR INHALER Q6H, TUSSIONEX 5ML PO Q12H, TESSALON PERLES TID, LOVENOX 30MG SC DAILY, ROBITUSSIN DM 10 ML PO QID, ZOFRAN 4MG IV Q6H PRN, AND THE POTASSIUM AND MAGNESIUM PROTOCOLS (2) COVID-19 Status: Acute (3) Fever Status: Acute Qualifiers: Fever type: unspecified Qualified Code(s): R50.9 - Fever, unspecified (4) Dyspnea Status: Acute Qualifiers: Dyspnea type: shortness of breath Qualified Code(s): R06.02 - Shortness of breath; R06.00 - Dyspnea, unspecified; R06.01 - Orthopnea (5) Nausea and vomiting Status: Acute Qualifiers: Vomiting type: unspecified Vomiting Intractability: unspecified Qualified Code(s): R11.2 - Nausea with vomiting, unspecified
[2020-01-18] MEDS: VENTOLIN or PROAIR HFA IN SCH ×6 (00:39→19:45)
[2020-01-18 05:25] LABS: BASOPHILS # (AUTO) 0.1 X10^3/uL (0.0-0.1); BASOPHILS % (AUTO) 0.6 % (0.2-1.0); EOSINOPHILS # (AUTO) 0.2 x10^3/uL (0.0-0.2); EOSINOPHILS % (AUTO) 2.1 % (0.9-2.9); HEMATOCRIT 30.8 % (36.0-47.0); HEMOGLOBIN 10.4 g/dL (12.0-16.0); LYMPHOCYTES # (AUTO) 1.4 X10^3/uL (1.3-2.9); MEAN CORPUSCULAR HEMOGLOBIN 29.5 pg (27.0-34.0); MEAN CORPUSCULAR HGB CONC 33.7 g/dL (33.0-35.0); MEAN CORPUSCULAR VOLUME 87.4 fL (80.0-100.0); MEAN PLATELET VOLUME 8.3 fL (7.4-11.0); MONOCYTES # (AUTO) 1.4 x10^3/uL (0.3-0.8); MONOCYTES % (AUTO) 13.2 % (0.0-13.0); NEUTROPHILS # (AUTO) 7.2 x10^3/uL (2.2-4.8); NEUTROPHILS % (AUTO) 70.1 % (42.0-75.0); PLATELET COUNT 215 X10^3/uL (150.0-450.0); RED BLOOD COUNT 3.52 X10^6/uL (3.5-5.4); RED CELL DISTRIBUTION WIDTH 13.7 % (11.6-16.5); WHITE BLOOD COUNT 10.3 X10^3/uL (3.6-10.0)
[2020-01-18] MEDS: NS 1/2 1000 ML IV 1,000 ML IV SCH ×3 (05:34→15:50)
[2020-01-18 05:41] LABS: ALANINE AMINOTRANSFERASE 48 Units/L (12-78); ALKALINE PHOSPHATASE 64 Units/L (46-116); ASPARTATE AMINO TRANSFERASE 24 Units/L (15-37); BLOOD UREA NITROGEN 7 mg/dL (7-18); CALCIUM 8.9 mg/dL (8.5-10.1); CARBON DIOXIDE 31.3 mmol/L (21-32); CHLORIDE 99 mmol/L (98-107); COR CA(FOR HYPOALB) 10.5 mg/dL (8.5-10.1); COR NA(FOR HYPERGLY) 133 mmol/L (136-145); CREATININE 0.81 mg/dL (0.55-1.02); SODIUM 133 mmol/L (136-145); TOTAL PROTEIN 6.1 g/dL (6.4-8.2); eGFR NON BLACK RACES > 60 (>60)
[2020-01-18] MEDS: TESSALON PERLES PO SCH ×3 (06:14→21:35)
--- NOTE | 2020-01-18 06:48 | RAD ---
HISTORYShortness of breathSTUDYChest AP [id number] heart is upper limits normal in size. No definite congestive heart failure is identified. The lungs are somewhat better inflated than on the prior examination. Improving perihilar subsegmental atelectasis on the right. Left perihilar infiltrate is unchanged. No pleural effusions are identified. Bony thorax is unremarkable.IMPRESSIONNo change left perihilar and peripheral upper lobe lung infiltrateImproving subsegmental atelectasis right lung baseElectronically signed by: FERNANDO JAMES (Jan 18, 2020 06:47:22)
[2020-01-18] MEDS: FORTAZ or TAZICEF VIAL INJ 1 G in NS 100 ML IV + SPIKE MINIBAG* 100 ML IV SCH (08:57)
[2020-01-18] MEDS: LOVENOX INJ 30 MG SYR SC SCH (08:57)
[2020-01-18] MEDS: VSL#3 PO SCH (08:58)
[2020-01-18] MEDS: ROBITUSSIN DM PO SCH ×4 (08:58→20:30)
[2020-01-18] MEDS: LEVAQUIN PREMIX IV 750 MG 750 MG/150 ML BAG IV SCH (08:59)
[2020-01-18] MEDS ORDERED: NS 1/2 1000 ML IV 1,000 ML IV ONE ×2 (09:24→23:17)
--- NOTE | 2020-01-18 10:36 | PCM.PROG ---
Progress Note - Progress Note for Day of Date of Exam: 01/18/20 - Subjective Subjective: IS BEING TREATED FOR COVID-19 AND BRONCHOPNEUMONIA. TODAY, SHE IS ALERT AND OREINTED, LYING IN BED ON MORNING ROUNDS. SHE CONTINUES WITH COMPLAINTS OF COUGH, BUT CONTINUES TO REPORT IMPROVEMENT. SHE DENIES SHORTNESS OF BREATH THIS MORNING. ON EXAMINATION, HEART IS REGUALR IN RATE AND RHYTHM. BILATERAL LUNGS ARE NOTED WITH SCATTERED WHEEZING THROUGHOUT. ABDOMEN IS ROUND, SOFT, AND NON-TENDER WITH NORMAL BOWEL SOUNDS NOTED IN ALL QUADRANTS. HER VITALS THIS MORNING ARE: 98.9-77-28-96%-142/63. LABS WERE OBTAINED. ABNORMAL LAB VALUES INCLUDE THE FOLLOWING: WBC 10.3, HGB 10.4, HCT 30.8, SODIUM 133, GLUCOSE 111, FERRITIN 582, CRP 79.90, TOTAL PROTEIN 6.1, ALBUMIN 2.0. BLOOD AND SPUTUM CULTURES ARE PENDING. A CHEST XRAY WAS OBTAINED AND REVEALED: No change left perihilar and peripheral upper lobe lung infiltrate. Improving subsegmental atelectasis right lung base. SHE IS CURRENTLY RECEIVING 1/2NS AT 75 ML/HR, LEVAQUIN 750MG IV Q48H, FORTAZ 1G IV DAILY, PROAIR INHALER Q6H, TUSSIONEX 5ML PO Q12H PRN, LOVENOX 30MG SC DAILY, ROBITUSSIN DM 10 ML PO QID, ZOFRAN 4MG IV Q6H PRN, AND THE POTASSIUM AND MAGNESIUM PROTOCOLS. WE WILL CONTINUE WITH CURRENT PLAN OF CARE TODAY. SHE SHOULD BE READY FOR DISCHARGE TOMORROW. OTHERWISE, WE WILL FOLLOW UP WITH AM LABS AND CONTINUE TO MONITOR. - Past Medical Family Social History Past Med/Fam/Surg Hx: No changes since H&P Allergies: Allergies quinine [From Quinamm] Allergy (Verified 01/14/20 13:33) Sulfa (Sulfonamide Antibiotics) [SULFA] Allergy (Verified 01/14/20 13:33) - Review of Systems ROS: No change since H&P - Vital Signs and I&O's Vital Signs: Temperature 98.3 F Pulse Rate [Apical] 73 Pulse Rate 68 Respiratory Rate 32 Blood Pressure [Left Arm] 118/56 O2 Sat by Pulse Oximetry 94 Intake and Output: Intake & Output 01/15/20 01/16/20 01/17/20 01/18/20 11:59 11:59 11:59 11:59 Intake Total 3080 / 3080 3840 / 3840 2885 / 2885 2396 / 2396 Output Total 600 / 600 Balance 3080 / 3080 3240 / 3240 2885 / 2885 2396 / 2396 - Physical Exam Oriented: Normal Eyes: Normal Ear: Normal Nose: Normal Throat: Normal Respiratory: Generalized, Wheezes Cardiovascular: Normal. negative: S3, S4, Murmur : Normal Auscultation: Bowel Sounds: Normal Tenderness: Normal Skin: Normal Musculoskeletal: Normal Psychiatric: Normal Mood Description: Calm Affect: Normal Speech Pattern: Clear - Laboratory and Diagnostics Result Diagrams: 01/18/20 04:17 01/18/20 04:17 Labs: 01/14/20 13:55 Blood Blood Culture - Preliminary 01/14/20 13:55 Blood Blood Culture - Preliminary 01/14/20 17:55 Sputum - Expectorated Sputum Sputum Culture - Final 01/14/20 17:55 Sputum - Expectorated Sputum - Final Laboratory WBC 10.3 X10^3/uL (3.6-10.0) H 01/18/20 04:17 RBC 3.52 X10^6/uL (3.5-5.4) 01/18/20 04:17 Hgb 10.4 g/dL (12.0-16.0) L 01/18/20 04:17 Hct 30.8 % (36.0-47.0) L 01/18/20 04:17 MCV 87.4 fL (80.0-100.0) 01/18/20 04:17 MCH 29.5 pg (27.0-34.0) 01/18/20 04:17 MCHC 33.7 g/dL (33.0-35.0) 01/18/20 04:17 RDW 13.7 % (11.6-16.5) 01/18/20 04:17 Plt Count 215 X10^3/uL (150.0-450.0) 01/18/20 04:17 MPV 8.3 fL (7.4-11.0) 01/18/20 04:17 Neut % (Auto) 70.1 % (42.0-75.0) 01/18/20 04:17 Lymph % (Auto) 14.0 % (21.0-51.0) L 01/18/20 04:17 [place] % (Auto) 13.2 % (0.0-13.0) H 01/18/20 04:17 Eos % (Auto) 2.1 % (0.9-2.9) 01/18/20 04:17 Baso % (Auto) 0.6 % (0.2-1.0) 01/18/20 04:17 Neut # (Auto) 7.2 x10^3/uL (2.2-4.8) H 01/18/20 04:17 Lymph # (Auto) 1.4 X10^3/uL (1.3-2.9) 01/18/20 04:17 [place] # (Auto) 1.4 x10^3/uL (0.3-0.8) H 01/18/20 04:17 Eos # (Auto) 0.2 x10^3/uL (0.0-0.2) 01/18/20 04:17 Baso # (Auto) 0.1 X10^3/uL (0.0-0.1) 01/18/20 04:17 Absolute Nucleated RBC 0.0 /100WBC 01/18/20 04:17 Sample Site R rad 01/16/20 05:00 ABG pH 7.470 (7.35-7.45) H 01/16/20 05:00 ABG pCO2 34.0 mmHg (35.0-45.0) L 01/16/20 05:00 ABG pO2 83.0 mmHg (80.0-100.0) 01/16/20 05:00 ABG HCO3 24.7 mmol/L (22-26) 01/16/20 05:00 ABG O2 Saturation 97.0 % (90-100) 01/16/20 05:00 ABG Base Excess 1.4 mmol/L (-2.0-2.0) 01/16/20 05:00 Jose Test Poss 01/16/20 05:00 A-a Gradient 74.0 mmHg 01/16/20 05:00 FiO2 28.0 01/16/20 05:00 Blood Gas Comments Amber well kb 01/16/20 05:00 Sodium 133 mmol/L (136-145) L 01/18/20 04:17 Corrected Sodium 133 mmol/L (136-145) L 01/18/20 04:17 Potassium 4.0 mmol/L (3.5-5.1) 01/18/20 04:17 Chloride 99 mmol/L (98-107) 01/18/20 04:17 Carbon Dioxide 31.3 mmol/L (21-32) 01/18/20 04:17 BUN 7 mg/dL (7-18) 01/18/20 04:17 Creatinine 0.81 mg/dL (0.55-1.02) 01/18/20 04:17 Est GFR (MDRD) Af Amer > 60 (>60) 01/18/20 04:17 Est GFR (MDRD) Non-Af > 60 (>60) 01/18/20 04:17 Glucose 111 mg/dL (65-99) H 01/18/20 04:17 Calcium 8.9 mg/dL (8.5-10.1) 01/18/20 04:17 Corrected Calcium 10.5 mg/dL (8.5-10.1) H 01/18/20 04:17 Magnesium 2.0 mg/dL (1.7-2.9) 01/14/20 13:55 Ferritin 582 ng/mL (8-252) H 01/18/20 04:17 Total Bilirubin 0.40 mg/dL (0.2-1.0) 01/18/20 04:17 AST 24 Units/L (15-37) 01/18/20 04:17 ALT 48 Units/L (12-78) 01/18/20 04:17 Alkaline Phosphatase 64 Units/L (46-116) 01/18/20 04:17 Lactate Dehydrogenase 239 Units/L (81-234) H 01/14/20 13:55 C-Reactive Protein 79.90 mg/L (0-3.0) H 01/18/20 04:17 Total Protein 6.1 g/dL (6.4-8.2) L 01/18/20 04:17 Albumin 2.0 g/dL (3.4-5.0) L 01/18/20 04:17 Globulin 4.1 g/dL (2.5-4.5) 01/18/20 04:17 Albumin/Globulin Ratio 0.5 Ratio (1.1-2.1) L 01/18/20 04:17 Cortisol 21.6 ug/dL 01/15/20 05:01 SARS-CoV-2 (PCR) Positive (NEGATIVE) A 01/14/20 10:42 - Plan (1) Bronchopneumonia Status: Acute Plan: 1/2NS AT 75 ML/HR, LEVAQUIN 750MG IV Q48H, FORTAZ 1G IV DAILY, PROAIR INHALER Q6H, TUSSIONEX 5ML PO Q12H, TESSALON PERLES TID, LOVENOX 30MG SC DAILY, ROBITUSSIN DM 10 ML PO QID, ZOFRAN 4MG IV Q6H PRN, AND THE POTASSIUM AND MAGNESIUM PROTOCOLS (2) COVID-19 Status: Acute (3) Fever Status: Acute Qualifiers: Fever type: unspecified Qualified Code(s): R50.9 - Fever, unspecified (4) Dyspnea Status: Acute Qualifiers: Dyspnea type: shortness of breath Qualified Code(s): R06.02 - Shortness of breath; R06.00 - Dyspnea, unspecified; R06.01 - Orthopnea (5) Nausea and vomiting Status: Acute Qualifiers: Vomiting type: unspecified Vomiting Intractability: unspecified Qualified Code(s): R11.2 - Nausea with vomiting, unspecified
[2020-01-18] MEDS: TUSSIONEX PENNKINETIC SUSP PO SCH ×2 (12:22→22:15)
[2020-01-19] MEDS: VENTOLIN or PROAIR HFA IN SCH ×2 (01:01→05:47)
[2020-01-19] MEDS: NS 1/2 1000 ML IV 1,000 ML IV SCH ×2 (01:15→05:55)
[2020-01-19 05:32] LABS: BASOPHILS % (AUTO) 0.3 % (0.2-1.0); EOSINOPHILS # (AUTO) 0.2 x10^3/uL (0.0-0.2); EOSINOPHILS % (AUTO) 2.9 % (0.9-2.9); HEMATOCRIT 28.5 % (36.0-47.0); HEMOGLOBIN 9.8 g/dL (12.0-16.0); LYMPHOCYTES # (AUTO) 1.5 X10^3/uL (1.3-2.9); LYMPHOCYTES % (AUTO) 19.4 % (21.0-51.0); MEAN CORPUSCULAR HEMOGLOBIN 29.7 pg (27.0-34.0); MEAN CORPUSCULAR HGB CONC 34.3 g/dL (33.0-35.0); MEAN CORPUSCULAR VOLUME 86.5 fL (80.0-100.0); MEAN PLATELET VOLUME 7.2 fL (7.4-11.0); MONOCYTES # (AUTO) 1.1 x10^3/uL (0.3-0.8); MONOCYTES % (AUTO) 14.1 % (0.0-13.0); NEUTROPHILS # (AUTO) 4.8 x10^3/uL (2.2-4.8); NEUTROPHILS % (AUTO) 63.3 % (42.0-75.0); PLATELET COUNT 250 X10^3/uL (150.0-450.0); RED BLOOD COUNT 3.29 X10^6/uL (3.5-5.4); RED CELL DISTRIBUTION WIDTH 13.5 % (11.6-16.5); WHITE BLOOD COUNT 7.5 X10^3/uL (3.6-10.0)
[2020-01-19 05:51] LABS: ALANINE AMINOTRANSFERASE 57 Units/L (12-78); ALKALINE PHOSPHATASE 72 Units/L (46-116); ASPARTATE AMINO TRANSFERASE 38 Units/L (15-37); BLOOD UREA NITROGEN 8 mg/dL (7-18); CALCIUM 8.9 mg/dL (8.5-10.1); CARBON DIOXIDE 31.5 mmol/L (21-32); CHLORIDE 100 mmol/L (98-107); COR CA(FOR HYPOALB) 10.5 mg/dL (8.5-10.1); CREATININE 0.85 mg/dL (0.55-1.02); SODIUM 136 mmol/L (136-145); TOTAL PROTEIN 6.1 g/dL (6.4-8.2); eGFR NON BLACK RACES > 60 (>60)
[2020-01-19] MEDS: TESSALON PERLES PO SCH (05:57)
--- NOTE | 2020-01-19 06:08 | RAD ---
HISTORYSOBSTUDYPortable AP [id number] normal heart size. Persistent peripheral left midlung infi ltrate. Recurring airspace disease in the anterior segment right upper lobe. No definite pleural flui d or pneumothorax.IMPRESSIONStable left-sided pulmonary infiltrate with increasing segmental consolid ation right upper lobe.Electronically signed by: LIEN FERGUSON (Jan 19, 2020 06:07:37)
[2020-01-19] MEDS: FORTAZ or TAZICEF VIAL INJ 1 G in NS 100 ML IV + SPIKE MINIBAG* 100 ML IV SCH (08:01)
[2020-01-19] MEDS: LOVENOX INJ 30 MG SYR SC SCH (08:01)
[2020-01-19] MEDS: ROBITUSSIN DM PO SCH (08:02)
[2020-01-19] MEDS: VSL#3 PO SCH (08:03)
[2020-01-19 13:16] VITALS: BP 130/62
== END 2020-01-19 11:45 | disposition home or self-care (01) | DRG 177 ==
LOC: OBS 10:03 → ICU 13:08
PROVIDERS: ADMIT Internal Medicine; ATTEND Internal Medicine
DX: J44.9 Chronic obstructive pulmonary disease, unspecified; R11.2 Nausea with vomiting, unspecified; E10.65 Type 1 diabetes mellitus with hyperglycemia; U07.1 COVID-19; J12.89 Other viral pneumonia; R06.02 Shortness of breath; R50.9 Fever, unspecified
CPT/HCPCS: 36415; 36600; 71010; 71045; 80053; 82533; 82728; 82803; 83615; 83735; 84132; 85025; 86140; 87040; 87070; 87205; 87635; 94640; J0713; J1650; J1956; J2405; J3490; J7050